=== PATIENT | male | born 1940 ===

== ENCOUNTER 2020-03-18 19:34 | Inpatient (IN) | payer MEDICARE, OTHER ==
[~2020-03-18] VITALS: Wt 68.2 kg
[2020-03-18] MEDS ORDERED: NORVASC5 MG PO (19:50)
[2020-03-18] MEDS ORDERED: ATENOLOL50 M1 PO (19:51)
[2020-03-18] MEDS ORDERED: VITAMIN B-121000 MC2 PO (19:52)
[2020-03-18] MEDS ORDERED: DEPAKOTE SPRIN125 MG PO (19:53)
[2020-03-18] MEDS ORDERED: EXELON1 EAC2 T (19:54)
[2020-03-18] MEDS ORDERED: GEMFIBROZIL600 MG PO (19:55)
[2020-03-18] MEDS ORDERED: LEVOTHYROXINE100 MC1 PO (19:56)
[2020-03-18] MEDS ORDERED: NAMENDA10 MG PO (19:56)
[2020-03-18] MEDS ORDERED: OMEPRAZOLE20 M2 PO (19:57)
[2020-03-18] MEDS ORDERED: TRAZODONE50 MG PO (19:58)
[2020-03-18] MEDS ORDERED: VITAMIN D350 MC1 PO (19:59)
[2020-03-19 08:53] VITALS: BP 142/65
[2020-03-19 09:32] LABS: BASO % 0.2 % (0.0-1.0); EOS # 0.1 10*3/uL (0.0-0.4); EOS % 1.8 % (1.0-4.0); HEMATOCRIT 33.2 % (42.0-52.0); LYMPH # 0.5 10*3/uL (1.3-4.4); LYMPH % 8.7 % (27.0-41.0); MEAN CELL VOLUME 86.5 fl (80.0-94.0); MEAN CORPUSCULAR HGB 27.1 pg (27.0-31.0); MEAN CORPUSCULAR HGB CONC 31.3 g/dl (33.0-37.0); MEAN PLATELET VOLUME 10.5 fl (9.6-12.3); MONO # 0.4 10*3/uL (0.1-1.0); MONO % 7.4 % (3.0-9.0); NEUT # 4.9 10*3/uL (2.3-7.9); NEUT % 81.6 % (47.0-73.0); PLATELET COUNT AUTOMATED 162 10*3/uL (130-400); RED BLOOD COUNT 3.84 10*6/uL (4.50-5.90); RED CELL DISTRI WIDTH 15.3 % (0-14.5)
[2020-03-19 09:43] LABS: ALBUMIN 2.7 gm/dl (3.1-4.5); ALKALINE PHOSPHATASE 65 U/L (45-117); BUN 14 mg/dl (7-24); CHLORIDE 105 mmol/L (98-107); CHOLESTEROL 199 mg/dL (<200); HDL CHOLESTEROL 31 mg/dl (40-60); LDL CHOLESTEROL 140 mg/dL (9-159); POTASSIUM 3.5 mmol/L (3.5-5.1); SGOT/AST 6 IU/L (3-35); SGPT/ALT 9 U/L (12-78); SODIUM 140 mmol/L (136-145); TOTAL PROTEIN 7.2 gm/dL (6.4-8.2); TRIGLYCERIDES 140 mg/dl (<150); VLDL CHOLESTEROL 28 mg/dL (6-40)
[2020-03-19 09:52] LABS: THYROID STIM HORMONE (HS) 0.588 uIU/ml (0.358-4.75); VALPROIC ACID (DEPAKENE) 55.3 ug/ml (50-100)
[2020-03-19 10:22] LABS: VITAMIN D, 25-HYDROXY 52.1 ng/mL (30-100)
[2020-03-19 20:00] VITALS: BP 138/66
[2020-03-20 07:53] VITALS: BP 140/70
[2020-03-20 20:00] VITALS: BP 138/74
[2020-03-21 08:00] VITALS: BP 138/70
[2020-03-21 14:33] LABS: BACTERIA 4+; BILIRUBIN NEGATIVE (NEGATIVE); BLOOD NEGATIVE (NEGATIVE); CLARITY SL CLOUDY (CLEAR); COLOR YELLOW (YELLOW); GLUCOSE NEGATIVE (NEGATIVE); KETONE NEGATIVE (NEGATIVE); LEUKO ESTERASE NEGATIVE (NEGATIVE); MUCOUS 1+; NITRITE NEGATIVE (NEGATIVE); UROBILINOGEN 0.2 E.U./dl (0.2-1.0)
[2020-03-21 20:00] VITALS: BP 140/86
[2020-03-22 07:51] VITALS: BP 150/51
[2020-03-22 20:00] VITALS: BP 134/70
[2020-03-23 08:00] VITALS: BP 132/67
[2020-03-23 16:47] VITALS: BP 166/63
[2020-03-24 07:36] VITALS: BP 163/72
[2020-03-24 19:06] VITALS: BP 140/57
[2020-03-25 07:46] VITALS: BP 148/52
[2020-03-25 19:00] VITALS: BP 136/76
[2020-03-26 07:36] VITALS: BP 117/58
[2020-03-26 19:40] VITALS: BP 129/56
[2020-03-27 08:00] VITALS: BP 130/69
[2020-03-27 19:07] VITALS: BP 145/54
[2020-03-28 07:56] VITALS: BP 122/60; BP 157/68
[2020-03-28 19:50] VITALS: BP 152/62
[2020-03-29 07:45] VITALS: BP 125/60
[2020-03-29 20:00] VITALS: BP 129/56
[2020-03-30 08:00] VITALS: BP 136/54
[2020-03-30 19:55] VITALS: BP 141/69
[2020-03-31 08:02] VITALS: BP 134/50
[2020-03-31 08:55] LABS: BASO % 0.1 % (0.0-1.0); EOS # 0.1 10*3/uL (0.0-0.4); EOS % 0.9 % (1.0-4.0); HEMATOCRIT 28.2 % (42.0-52.0); LYMPH # 0.5 10*3/uL (1.3-4.4); LYMPH % 5.4 % (27.0-41.0); MEAN CELL VOLUME 85.2 fl (80.0-94.0); MEAN CORPUSCULAR HGB 27.5 pg (27.0-31.0); MEAN CORPUSCULAR HGB CONC 32.3 g/dl (33.0-37.0); MEAN PLATELET VOLUME 10.3 fl (9.6-12.3); MONO % 10.2 % (3.0-9.0); NEUT % 82.9 % (47.0-73.0); PLATELET COUNT AUTOMATED 130 10*3/uL (130-400); RED BLOOD COUNT 3.31 10*6/uL (4.50-5.90); RED CELL DISTRI WIDTH 15.8 % (0-14.5); WHITE BLOOD COUNT 9.7 10*3/uL (4.8-10.8)
[2020-03-31 09:18] LABS: ALBUMIN 2.2 gm/dl (3.1-4.5); ALKALINE PHOSPHATASE 61 U/L (45-117); BUN 17 mg/dl (7-24); CHLORIDE 108 mmol/L (98-107); CREATININE 1.17 mg/dL (0.70-1.30); POTASSIUM 3.6 mmol/L (3.5-5.1); SGOT/AST 8 IU/L (3-35); SGPT/ALT 8 U/L (12-78); SODIUM 142 mmol/L (136-145); TOTAL PROTEIN 6.9 gm/dL (6.4-8.2)
[2020-03-31 10:39] LABS: BILIRUBIN NEGATIVE (NEGATIVE); BLOOD NEGATIVE (NEGATIVE); CLARITY SL CLOUDY (CLEAR); COLOR YELLOW (YELLOW); GLUCOSE NEGATIVE (NEGATIVE); KETONE NEGATIVE (NEGATIVE); LEUKO ESTERASE NEGATIVE (NEGATIVE); NITRITE NEGATIVE (NEGATIVE); UROBILINOGEN 0.2 E.U./dl (0.2-1.0)
[2020-03-31 10:40] LABS: EPITHELIAL CELLS 0-2; RBC 0-2 rbc/hpf (0-2)
[2020-03-31 20:00] VITALS: BP 150/70
[2020-04-01 07:53] VITALS: BP 125/73
[2020-04-01 20:00] VITALS: BP 120/65
[2020-04-02 07:48] VITALS: BP 148/64
[2020-04-02 20:01] VITALS: BP 142/62
[2020-04-03 07:35] VITALS: BP 145/49
[2020-04-03 20:00] VITALS: BP 141/55
[2020-04-04 07:41] VITALS: BP 142/62
[2020-04-04] MEDS ORDERED: RISPERIDONE1 MG PO (09:38)
[2020-04-04] MEDS ORDERED: MEMANTINE HCL10 MG PO (09:38)
[2020-04-04] MEDS ORDERED: DIVALPROEX SOD500 MG PO (09:38)
[2020-04-04] MEDS ORDERED: RIVASTIGMINE1 EAC2 T (09:38)
[2020-04-04] MEDS ORDERED: AUGMENTIN 875875 MG PO (11:12)
== END 2020-04-04 12:47 | DRG 883 ==
LOC: 3N 19:34
PROVIDERS: Registered Nurse; ADMIT Psychiatry & Neurology Psychiatry
PROC: 0HBRXZZ Excision of Toe Nail, External Approach (ICD-10-PCS; principal; 2020-03-28)
DX: F63.81 Intermittent explosive disorder (principal); E43 Unspecified severe protein-calorie malnutrition; J69.0 Pneumonitis due to inhalation of food and vomit; J15.6 Pneumonia due to other Gram-negative bacteria; G30.9 Alzheimer's disease, unspecified; I25.10 Atherosclerotic heart disease of native coronary artery without angina pectoris; E03.9 Hypothyroidism, unspecified; E78.2 Mixed hyperlipidemia; D52.9 Folate deficiency anemia, unspecified; F02.80 Dementia in other diseases classified elsewhere, unspecified severity, without behavioral disturbance, psychotic disturbance, mood disturbance, and anxiety; R74.8 Abnormal levels of other serum enzymes; I10 Essential (primary) hypertension; K21.9 Gastro-esophageal reflux disease without esophagitis; B35.1 Tinea unguium; Z88.8 Allergy status to other drugs, medicaments and biological substances; Z68.24 Body mass index [BMI] 24.0-24.9, adult; Z03.818 Encounter for observation for suspected exposure to other biological agents ruled out